=== PATIENT | male | born 2000 | race Caucasian/White ===

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

== ENCOUNTER 2021-07-08 21:35 | Emergency (ER) | payer OTHER ==
[2021-07-08] MEDS ORDERED: SODIUM CHLORIDE 0.9% 1,000 ML IV ONE (22:03)
[2021-07-08] MEDS ORDERED: ONDANSETRON 4 MG/2 ML VIAL IVP STA (22:03)
[2021-07-08] MEDS ORDERED: MORPHINE SULFATE 4 MG/ML SYRINGE IV STA (22:03)
--- NOTE | 2021-07-08 22:08 | ED ---
Abdominal Pain HPI - General Chief Complaint: Abdominal Pain Stated Complaint: Abd.Pain Time Seen by Provider: 07/08/21 21:49 Source: patient, family Mode of arrival: wheelchair Limitations: no limitations - History of Present Illness Initial Comments: This patient has a 20-year-old man who presents to be evaluated for right lower quadrant abdominal pain that is been going on approximately 32 hours, getting worse. The patient also has had some nausea and vomiting. He did have an episode of diarrhea. He has not seen blood or dark emesis or bowel movements. No change in urination. The patient had a previous episode of abdominal pain similar to this and had been admitted here in the hospital. Review the records shows that there was concerned about possibility of Crohn's colitis. The patient did not have follow-up with gastroenterology at that time. MD Complaint: abdominal pain Onset/Timin -: hour(s) Location: RLQ Radiation: none Severity: moderate Quality: aching Consistency: constant Improves With: nothing Worsens With: movement Associated Symptoms: nausea, vomiting - Related Data Previous Rx's Medication Instructions Recorded Amoxicillin/Potassium Clav 1 tab PO Q12HR 1 Days #14 tab 07/09/21 [Augmentin 875-125 Tablet] Ondansetron Odt [Zofran ODT] 4 mg PO Q8HR PRN #10 tab 07/09/21 predniSONE 60 mg PO DAILY #30 tab 07/09/21 Allergies Allergy/AdvReac Type Severity Reaction Status Date / Time haloperidol [From Haldol] Allergy Severe Anaphylaxis Verified 07/08/21 22:41 Review of Systems ROS Statement: Those systems with pertinent positive or pertinent negative responses have been documented in the HPI. ROS Other: All systems not noted in ROS Statement are negative. Constitutional: Denies: fever, chills Respiratory: Denies: cough, dyspnea Cardiovascular: Denies: chest pain, palpitations Gastrointestinal: Reports: abdominal pain, nausea, vomiting. Denies: diarrhea, constipation, melena, hematochezia Genitourinary: Denies: dysuria, frequency, hematuria, testicular pain, testicular mass Musculoskeletal: Denies: back pain Skin: Denies: rash Neurological: Denies: headache, weakness, numbness Past Medical History Past Medical History: Asthma, GERD/Reflux Additional Past Medical History / Comment(s): Headaches SINCE A HEAD INJURY IN 2017, FEBRILE SEIZURE A INFANT, PAST HISTORY OF IRREGULAR HEARTBEAT- History of Any Multi-Drug Resistant Organisms: None Reported Past Surgical History: No Surgical Hx Reported Additional Past Surgical History / Comment(s): DENTAL WORK WITH ANESTHESIA Past Anesthesia/Blood Transfusion Reactions: No Reported Reaction Past Psychological History: ADD/ADHD, Depression Smoking Status: Never smoker Past Alcohol Use History: None Reported Past Drug Use History: Marijuana - Past Family History Mother Family Medical History: No Reported History General Exam Limitations: no limitations General appearance: alert, in no apparent distress Head exam: Present: atraumatic, normocephalic Eye exam: Present: normal appearance. Absent: scleral icterus, conjunctival injection Respiratory exam: Present: normal lung sounds bilaterally. Absent: respiratory distress, wheezes, rales, rhonchi, stridor Cardiovascular Exam: Present: regular rate, normal rhythm, normal heart sounds. Absent: systolic murmur, diastolic murmur, rubs, gallop GI/Abdominal exam: Present: soft. Absent: distended, tenderness, guarding, rebound, rigid, mass Extremities exam: Present: normal inspection, normal capillary refill. Absent: pedal edema, calf tenderness Back exam: Present: normal inspection. Absent: CVA tenderness (R), CVA tenderness (L) Neurological exam: Present: alert Skin exam: Present: warm, dry, intact, normal color. Absent: rash Course Vital Signs 07/08/21 07/08/21 07/08/21 21:39 21:54 23:00 Temperature 97.6 F 98.3 F 98.4 F Pulse Rate 65 66 58 L Respiratory 18 17 17 Rate Blood Pressure 126/83 136/81 151/98 O2 Sat by Pulse 98 97 97 Oximetry Medical Decision Making - Medical Decision Making States that when he was feeling better he did not follow-up with the diesel locomotive firer/fireman. I discussed having patient admitted to see gastroenterology here and he states she would rather be seen as outpatient. We discussed in detail the appropriate further care and follow-up as well as return parameters. - Lab Data Result diagrams: 07/08/21 22:04 07/08/21 22:04 Lab Results 07/08/21 07/08/21 07/08/21 Range/Units 22:04 22:04 23:10 WBC 7.5 (4.0-11.0) k/uL RBC 4.89 (4.30-5.90) m/uL Hgb 15.2 (13.0-17.5) gm/dL Hct 45.2 (39.0-53.0) % MCV 92.4 (80.0-100.0) fL MCH 31.1 (25.0-35.0) pg MCHC 33.6 (31.0-37.0) g/dL RDW 12.6 (11.5-15.5) % Plt Count 248 (150-450) k/uL MPV 8.2 Neutrophils % 71 % Lymphocytes % 21 % Monocytes % 6 % Eosinophils % 1 % Basophils % 0 % Neutrophils # 5.3 (1.3-7.7) k/uL Lymphocytes # 1.6 (1.0-4.8) k/uL Monocytes # 0.5 (0-1.0) k/uL Eosinophils # 0.1 (0-0.7) k/uL Basophils # 0.0 (0-0.2) k/uL Sodium 138 (137-145) mmol/L Potassium 3.9 (3.5-5.1) mmol/L Chloride 105 (98-107) mmol/L Carbon Dioxide 24 (22-30) mmol/L Anion Gap 9 mmol/L BUN 18 (9-20) mg/dL Creatinine 0.71 (0.66-1.25) mg/dL Est GFR (CKD-EPI)AfAm >90 (>60 ml/min/1.73 sqM) Est GFR (CKD-EPI)NonAf >90 (>60 ml/min/1.73 sqM) Glucose 82 (74-99) mg/dL Calcium 8.5 (8.4-10.2) mg/dL Total Bilirubin 0.9 (0.2-1.3) mg/dL AST 21 (17-59) U/L ALT 11 (4-49) U/L Alkaline Phosphatase 75 (38-126) U/L C-Reactive Protein <0.5 (<1.0) mg/dL Total Protein 7.1 (6.3-8.2) g/dL Albumin 4.0 (3.5-5.0) g/dL Amylase 47 (30-110) U/L Lipase 19 L (23-300) U/L Urine Color Yellow Urine Appearance Clear (Clear) Urine pH 6.0 (5.0-8.0) Ur Specific [place] 1.029 (1.001-1.035) Urine Protein Trace H (Negative) Urine Glucose (UA) Negative (Negative) Urine Ketones 1+ H (Negative) Urine Blood Negative (Negative) Urine Nitrite Negative (Negative) Urine Bilirubin Negative (Negative) Urine Urobilinogen <2.0 (<2.0) mg/dL Ur Leukocyte Esterase Negative (Negative) Disposition Clinical Impression: Abdominal pain Narrative: Suspected Crohn's disease Disposition: HOME SELF-CARE Condition: Fair Instructions (If sedation given, give patient instructions): Abdominal Pain (ED) Prescriptions: Amoxicillin/Potassium Clav [Augmentin 875-125 Tablet] 1 tab PO Q12HR 1 Days #14 tab predniSONE 60 mg PO DAILY #30 tab Ondansetron Odt [Zofran ODT] 4 mg PO Q8HR PRN #10 tab PRN Reason: Nausea Is patient prescribed a controlled substance at d/c from ED?: No Referrals: None,Stated [Primary Care Provider] - 1-2 days Chelsy Almanzar MD [STAFF PHYSICIAN] - 1-2 days
[2021-07-08 22:33] LABS: Basophils % (A) 0 %; Eosinophils # (A) 0.1 k/uL (0-0.7); Eosinophils % (A) 1 %; HCT 45.2 % (39.0-53.0); HGB 15.2 gm/dL (13.0-17.5); Lymphocytes # (A) 1.6 k/uL (1.0-4.8); Lymphocytes % (A) 21 %; MCH 31.1 pg (25.0-35.0); MCHC 33.6 g/dL (31.0-37.0); MCV 92.4 fL (80.0-100.0); Mean Platelet Volume 8.2; Monocytes # (A) 0.5 k/uL (0-1.0); Monocytes % (A) 6 %; Neutrophils # (A) 5.3 k/uL (1.3-7.7); Neutrophils % (A) 71 %; Platelet Count 248 k/uL (150-450); RBC 4.89 m/uL (4.30-5.90); RDW 12.6 % (11.5-15.5); WBC 7.5 k/uL (4.0-11.0)
[2021-07-08 22:45] LABS: ALT 11 U/L (4-49); AST 21 U/L (17-59); African American GFR (CKD) >90 (>60 ml/min/1.73 sqM); Alkaline Phosphatase 75 U/L (38-126); Amylase 47 U/L (30-110); Anion Gap 9 mmol/L; Blood Urea Nitrogen 18 mg/dL (9-20); Calcium 8.5 mg/dL (8.4-10.2); Carbon Dioxide 24 mmol/L (22-30); Chloride 105 mmol/L (98-107); Glucose 82 mg/dL (74-99); Lipase 19 U/L (23-300); Non-African American GFR(CKD) >90 (>60 ml/min/1.73 sqM); Potassium 3.9 mmol/L (3.5-5.1); Sodium 138 mmol/L (137-145); Total Bilirubin 0.9 mg/dL (0.2-1.3); Total Protein 7.1 g/dL (6.3-8.2)
[2021-07-08 22:53] LABS: C Reactive Protein <0.5 mg/dL (<1.0)
[2021-07-08 23:19] VITALS: TEMP 98.4
--- NOTE | 2021-07-08 23:39 | CT ---
EXAMINATION TYPE: CT abdomen pelvis wo con DATE OF EXAM: 07/08/2021 COMPARISON: 05/08/2019 HISTORY: Right flank pain CT DLP: 515.3 mGycm Automated exposure control for dose reduction was used. Images obtained from the diaphragm to the floor the pelvis without contrast. The lung bases are clear. There is no pleural effusion. Heart size is normal. There is no pericardial effusion. Liver spleen and stomach pancreas and gallbladder appear intact. Bowel loops are nondilated. There is no adrenal mass. Kidneys have normal size and contour. There is no hydronephrosis. Ureters a re not dilated. There is no retroperitoneal adenopathy. Bladder distends smoothly. There is no gallery intern al hernia. There is small amount of low-density fluid in the pelvis. This measures up to 2.5 cm in th ickness. Appendix is posterior and appears normal. There is no ascites or free air. There is distended small bowel loops with fluid in the mid abdomen measuring up to 2.7 cm in diameter. There is some small bow el mesenteric edema in the lower abdomen. There is mild wall thickening of the distended bowel. The t erminal ileum has normal diameter. The lumbar vertebrae have normal alignment. There is no compression fracture. The bony pelvis is inta ct. The hip joints are intact. There is right-sided L5 spondylolysis. There is no spondylolisthesis. IMPRESSION: Mildly dilated mid ileum with fecal material and mild small bowel mesenteric edema. This could relate to inflammatory bowel disease and partial bowel obstruction. This appears similar to old exam. Small amount of low-density free fluid in the pelvis also not significantly different.
[2021-07-08 23:43] LABS: Appearance,Urine Clear (Clear); Bilirubin,Urine Negative (Negative); Blood,Urine Negative (Negative); Color,Urine Yellow; Glucose,Urine (UA) Negative (Negative); Ketones,Urine 1+ (Negative); Leukocyte Esterase,Urine Negative (Negative); Nitrite,Urine Negative (Negative); Protein,Urine Trace (Negative); Specific Gravity,Urine 1.029 (1.001-1.035); Urobilinogen,Urine <2.0 mg/dL (<2.0)
[2021-07-09] MEDS ORDERED: predniSONE 20 MG TAB PO STA (00:12)
[2021-07-09] MEDS ORDERED: AMOXIC-POT CLAV 875-125MG 1 EACH TAB PO STA (00:12)
[2021-07-09] MEDS ORDERED: MORPHINE SULFATE 4 MG/ML SYRINGE IV STA (00:36)
[2021-07-09 00:45] VITALS: BP 142/84; PULSE 84; RESP 15
== END 2021-07-09 00:40 | disposition home or self-care (01) ==
LOC: EC 21:35
DX: R10.31 Right lower quadrant pain (principal); J45.909 Unspecified asthma, uncomplicated; K21.9 Gastro-esophageal reflux disease without esophagitis; F12.90 Cannabis use, unspecified, uncomplicated; Z79.52 Long term (current) use of systemic steroids; Z79.899 Other long term (current) drug therapy
CPT/HCPCS: 36415; 80053; 82150; 83690; 85025; 86140; 81003; 74176; 99284; 96374; 96375; 96376; 96361 ×2; J2270; J2405

== ENCOUNTER 2021-08-19 17:55 | Emergency (ER) | payer OTHER ==
[2021-08-19 18:24] VITALS: BP 121/68; PULSE 77; RESP 18; TEMP 97
[2021-08-19] MEDS ORDERED: DEXAMETHASONE SOD PHOSPHATE 10 MG/ML 1 ML VIAL IM STA (19:03)
[2021-08-19] MEDS ORDERED: PENICILLIN V POTASSIUM 250 MG TAB PO STA (20:17)
[2021-08-19] MEDS ORDERED: KETOROLAC 15 MG/ML 1 ML VIAL IM STA (20:25)
--- NOTE | 2021-08-19 20:28 | ED ---
ENT HPI - General Chief complaint: Dental/Oral Stated complaint: tooth abcess Time Seen by Provider: 08/19/21 18:49 Source: patient Mode of arrival: ambulatory Limitations: no limitations - History of Present Illness Initial comments: Patient is a 20-year-old male presenting with chief complaint of dental pain. The left lower jaw has been increasingly painful over the last week. Patient has a known dental issues and has an appointment with the dentist in 2 days, but stated the pain became so intense that he could not wait for evaluation. He occasionally takes Motrin and Tylenol which is somewhat helpful for pain. Patient states there is pain with swallowing and opening and closing of the jaw. Denies muffled voice, shortness of breath, fever, chills, drooling, neck pain, headache, vision changes, ear pain, dysphasia. - Related Data Previous Rx's Medication Instructions Recorded Amoxicillin/Potassium Clav 1 tab PO Q12HR 1 Days #14 tab 07/09/21 [Augmentin 875-125 Tablet] Ondansetron Odt [Zofran ODT] 4 mg PO Q8HR PRN #10 tab 07/09/21 predniSONE 60 mg PO DAILY #30 tab 07/09/21 Penicillin V Potassium [Pen Vee K] 500 mg PO QID 7 Days #28 tablet 08/19/21 Allergies Allergy/AdvReac Type Severity Reaction Status Date / Time haloperidol [From Haldol] Allergy Severe Anaphylaxis Verified 08/19/21 18:21 Review of Systems ROS Statement: Those systems with pertinent positive or pertinent negative responses have been documented in the HPI. ROS Other: All systems not noted in ROS Statement are negative. Past Medical History Past Medical History: Asthma, GERD/Reflux Additional Past Medical History / Comment(s): Headaches SINCE A HEAD INJURY IN 2017, FEBRILE SEIZURE A , PAST HISTORY OF IRREGULAR HEARTBEAT- History of Any Multi-Drug Resistant Organisms: None Reported Past Surgical History: No Surgical Hx Reported Additional Past Surgical History / Comment(s): DENTAL WORK WITH ANESTHESIA Past Anesthesia/Blood Transfusion Reactions: No Reported Reaction Past Psychological History: ADD/ADHD, Depression Smoking Status: Never smoker Past Alcohol Use History: None Reported Past Drug Use History: Marijuana - Past Family History Mother Family Medical History: No Reported History General Exam Limitations: no limitations General appearance: alert, in no apparent distress Head exam: Present: atraumatic, normocephalic, normal inspection Eye exam: Present: normal appearance, PERRL, EOMI. Absent: scleral icterus, conjunctival injection, periorbital swelling Expanded Mouth exam: Present: tongue normal. Absent: drooling, trismus, muffled voice Teeth exam: Present: dental caries, fractured tooth # (teeth 19 and 20), dental tenderness # (19 and 20), gingival enlargement, other (Tenderness to palpation of the left mandible) Throat exam: tonsillomegaly (L side, no midline shift) Neck exam: Present: normal inspection. Absent: tenderness, meningismus, lymphadenopathy Respiratory exam: Present: normal lung sounds bilaterally. Absent: respiratory distress, wheezes, rales, rhonchi, stridor Cardiovascular Exam: Present: regular rate, normal rhythm, normal heart sounds. Absent: systolic murmur, diastolic murmur, rubs, gallop, clicks Neurological exam: Present: alert, oriented X3, CN II-XII intact Psychiatric exam: Present: normal affect, normal mood Skin exam: Present: warm, dry, intact, normal color. Absent: rash Course Vital Signs 08/19/21 18:22 Temperature 97 F L Pulse Rate 77 Respiratory 18 Rate Blood Pressure 121/68 O2 Sat by Pulse 95 Oximetry Medical Decision Making - Medical Decision Making Patient is a 20-year-old male presenting with a chief complaint of dental pain. Pain has been worsening over the last week and is located on the left lower side. Patient has known dental caries and injury to tooth 19 and 20, he has appointment with his dentist on Tuesday. On exam there is tenderness to palpation of the left side of the mandible. There is no brawny induration or lymphadenopathy. Patient has pain with opening and closing of the jaw but is able to do so. No muffled voice drooling or trismus. There is some swelling of the left tonsil, no midline shift. He denies dysphasia or shortness of breath. Strep screen was negative. Given 30 mg Toradol IM and his first dose of penicillin VK 500 mg. Remainder of his prescription for penicillin VK 500 mg 4 times a day for 7 days was sent to his pharmacy on file. Take Motrin and Tylenol as needed for pain control. Abstain from motrin for 24 hours after toradol injection. Follow-up with dentist at scheduled appointment. Follow-up with PCP in one to 2 days. Return to ER with worsening symptoms or new onset alarming symptoms, including but not limited to dysphasia, shortness of breath, fever, chills, trismus, headache, vision changes. answered All questions. Patient conveyed verbal understanding and agreed to the plan. My attending was Dr. Sewell. - Lab Data Lab Results 08/19/21 Range/Units 19:25 Group A Strep Rapid Negative (Negative) Disposition Clinical Impression: Dental abscess Disposition: HOME SELF-CARE Condition: Good Instructions (If sedation given, give patient instructions): Dental Abscess (ED), Toothache (ED) Additional Instructions: Follow Up with PCP and dentist in one to 2 days. Abstain from Motrin for 24 hours after receiving Toradol injection in the ER. Take Motrin and Tylenol for pain relief as needed. Report back to ER with worsening symptoms or new onset alarming symptoms, including but not limited to difficulty swallowing, voice changes, fever, chills, difficulty opening and closing jaw. Prescriptions: Penicillin V Potassium [Pen Vee K] 500 mg PO QID 7 Days #28 tablet Is patient prescribed a controlled substance at d/c from ED?: No Referrals: None,Stated [Primary Care Provider] - 1-2 days Time of Disposition: 20:28
== END 2021-08-19 20:42 | disposition home or self-care (01) ==
LOC: EC 17:55
DX: K04.7 Periapical abscess without sinus (principal); J45.909 Unspecified asthma, uncomplicated; K21.9 Gastro-esophageal reflux disease without esophagitis; F90.9 Attention-deficit hyperactivity disorder, unspecified type; F32.A Depression, unspecified; F12.90 Cannabis use, unspecified, uncomplicated
CPT/HCPCS: 99283; 96372 ×2; 87081; 87430; J1100; J1885

== ENCOUNTER 2023-09-21 15:04 | Emergency (ER) | payer OTHER ==
--- NOTE | 2023-09-21 15:44 | ED ---
General Adult HPI - General Chief complaint: Weakness Stated complaint: Slurred speech/dizziness Time Seen by Provider: 09/21/23 15:21 Source: patient Mode of arrival: ambulatory Limitations: no limitations - History of Present Illness Initial comments: Dictation was produced using [employer] dictation software. please excuse any grammatical, word or spelling errors. Chief Complaint: 22-year-old male with weakness, sore throat body aches fevers History of Present Illness: Patient 22-year-old male for the last 7 days he has been having weakness, total body aches, fevers and lethargy. He presents with his girlfriend. Patient denies any obvious sick contacts. States of all of his complaints the worst of it is weakness in the body aches. Patient also reports left-sided upper abdominal pain. Does complain of some poor appetite nausea but no vomiting. The ROS documented in this emergency department record has been reviewed and confirmed by me. Those systems with pertinent positive or negative responses have been documented in the HPI. All other systems are other negative and/or noncontributory. - Related Data Previous Rx's Medication Instructions Recorded Amoxicillin/Potassium Clav 1 tab PO Q12HR 1 Days #14 tab 07/09/21 [Augmentin 875-125 Tablet] Ondansetron Odt [Zofran ODT] 4 mg PO Q8HR PRN #10 tab 07/09/21 predniSONE 60 mg PO DAILY #30 tab 07/09/21 Penicillin V Potassium [Pen Vee K] 500 mg PO QID 7 Days #28 tablet 08/19/21 Allergies Allergy/AdvReac Type Severity Reaction Status Date / Time haloperidol [From Haldol] Allergy Severe Anaphylaxis Verified 09/21/23 15:15 Review of Systems ROS Statement: Those systems with pertinent positive or pertinent negative responses have been documented in the HPI. ROS Other: All systems not noted in ROS Statement are negative. Past Medical History Past Medical History: Asthma, GERD/Reflux Additional Past Medical History / Comment(s): Headaches SINCE A HEAD INJURY IN 2017, FEBRILE SEIZURE A , PAST HISTORY OF IRREGULAR HEARTBEAT- History of Any Multi-Drug Resistant Organisms: None Reported Past Surgical History: No Surgical Hx Reported Additional Past Surgical History / Comment(s): DENTAL WORK WITH ANESTHESIA Past Anesthesia/Blood Transfusion Reactions: No Reported Reaction Past Psychological History: ADD/ADHD, Depression Smoking Status: Never smoker, Vaper Past Alcohol Use History: None Reported, Rare Past Drug Use History: Marijuana - Past Family History Mother Family Medical History: No Reported History General Exam - General Exam Comments Initial Comments: PHYSICAL EXAM: General Impression: Alert and oriented x3, not in acute distress HEENT: Normocephalic atraumatic, extra-ocular movements intact, pupils equal and reactive to light bilaterally, mucous membranes moist, inflamed tonsils with exudates Cardiovascular: Heart regular rate and rhythm Chest: Able to complete full sentences, no retractions, no tachypnea Abdomen: abdomen soft, non-tender, non-distended, no organomegaly Musculoskeletal: Pulses present and equal in all extremities, no peripheral edema Motor: no focal deficits noted Neurological: CN II-XII grossly intact, no focal motor or sensory deficits noted Skin: Intact with no visualized rashes Psych: Normal affect and mood Limitations: no limitations Course Vital Signs 09/21/23 09/21/23 15:11 15:27 Temperature 99.0 F Pulse Rate 74 Respiratory 18 18 Rate Blood Pressure 126/81 O2 Sat by Pulse 98 Oximetry Medical Decision Making - Medical Decision Making Was pt. sent in by a medical professional or institution (, PA, SUPERVISOR PHOSPHORIC ACID, urgent care, hospital, or longterm...) When possible be specific @ -No Did you speak to anyone other than the patient for history (EMS, parent, family, police, friend...)? What history was obtained from this source @ -No Did you review nursing and triage notes (agree or disagree)? Why? @ -I reviewed and agree with nursing and triage notes Were old charts reviewed (outside hosp., previous admission, EMS record, old EKG, old radiological studies, urgent care reports/EKG's, longterm records)? Report findings @ -No old charts were reviewed Differential Diagnosis (chest pain, altered mental status, abdominal pain women, abdominal pain men, vaginal bleeding, musculoskeletal, weakness, fever, dyspnea, syncope, headache, dizziness, GI bleed, back pain, seizure, CVA, palpatations, mental health)? @ -Differential Fever: Pneumonia, viral URI, endocarditis, myocarditis, pericarditis, otitis, sinusitis, peritonsillar Abscess, retropharyngeal Abscess, epiglottitis, snow tonitis, appendicitis, Flori cystitis, diverticulitis, hepatitis, colitis, UTI, PID, TOA, pyelonephritis, prostatitis, epididymitis, meningitis, encephalitis, pulmonary embolism, CVA, thyroid storm, pancreatitis, adrenal crisis, cavernous sinus thrombosis, this is not meant to be an all-inclusive list. EKG interpreted by me (3pts min.). @ -None done X-rays interpreted by me (1pt min.). @ -None done CT interpreted by me (1pt min.). @ -None done U/S interpreted by me (1pt. min.). @ -None done What testing was considered but not performed or refused? (CT, X-rays, U/S, labs)? Why? @ -None What meds were considered but not given or refused? Why? @ -None Did you discuss the management of the patient with other professionals (professionals i.e. , PA, SUPERVISOR PHOSPHORIC ACID, lab, RT, psych nurse, social worker health services, bandmill operator, teacher, front desk officer, casework specialist)? Give summary @ -No Was smoking cessation discussed for >3mins.? @ -No Was critical care preformed (if so, how long)? @ -No Were there social determinants of health that impacted care today? How? (Homelessness, low income, unemployed, alcoholism, drug addiction, transportation, low edu. Level, literacy, decrease access to med. care, shelter, rehab)? @ -No Was there de-escalation of care discussed even if they declined (Discuss DNR or withdrawal of care, Hospice)? DNR status @ -No What co-morbidities impacted this encounter? (DM, HTN, Smoking, COPD, CAD, Cancer, CVA, ARF, Chemo, Hep., AIDS, mental health diagnosis, sleep apnea, morbid obesity)? @ -None Was patient admitted / discharged? Hospital course, mention meds given and route, prescriptions, significant lab abnormalities, going to OR and other pertinent info. @ -22-year-old male presents to the emergency department with pharyngitis with associated constitutional symptoms. Vital signs upon arrival are within acceptable limits. Laboratory evaluation obtained. Labs are negative. Patient negative for mononucleosis. Viral testing is negative. Strep test is negative. Patient observed emergency department with stable medical edition is given Toradol and reports improvement. Patient discharged likely symptoms secondary to viral URI e. Undiagnosed new problem with uncertain prognosis? @ -No Drug Therapy requiring intensive monitoring for toxicity (Heparin, Nitro, I nsulin, Cardizem)? @ -No Were any procedures done? @ -No Diagnosis/symptom? Acute, or Chronic, or Acute on Chronic? Uncomplicated (without systemic symptoms) or Complicated (systemic symptoms)? @ -Viral URI Side effects of treatment? @ -No Exacerbation, Progression, or Severe Exacerbation? @ -No Poses a threat to life or bodily function? How? (Chest pain, USA, [place], pneumonia, PE, COPD, DKA, ARF, appy, cholecystitis, CVA, Diverticulitis, Homicidal, Suicidal, threat to staff... and all critical care pts) @ -No - Lab Data Result diagrams: 09/21/23 16:00 09/21/23 16:00 Lab Results 09/21/23 09/21/23 09/21/23 Range/Units 15:30 16:00 16:00 WBC 7.9 (3.8-10.6) k/uL RBC 4.65 (4.30-5.90) m/uL Hgb 14.3 (13.0-17.5) gm/dL Hct 43.5 (39.0-53.0) % MCV 93.5 (80.0-100.0) fL MCH 30.7 (25.0-35.0) pg MCHC 32.8 (31.0-37.0) g/dL RDW 12.4 (11.5-15.5) % Plt Count 235 (150-450) k/uL MPV 8.5 Neutrophils % 79 % Lymphocytes % 14 % Monocytes % 5 % Eosinophils % 1 % Basophils % 0 % Neutrophils # 6.2 (1.3-7.7) k/uL Lymphocytes # 1.1 (1.0-4.8) k/uL Monocytes # 0.4 (0-1.0) k/uL Eosinophils # 0.0 (0-0.7) k/uL Basophils # 0.0 (0-0.2) k/uL Sodium (137-145) mmol/L Potassium (3.5-5.1) mmol/L Chloride (98-107) mmol/L Carbon Dioxide (22-30) mmol/L Anion Gap mmol/L BUN (9-20) mg/dL Creatinine (0.66-1.25) mg/dL Est GFR (CKD-EPI)AfAm (>60 ml/min/1.73 sqM) Est GFR (CKD-EPI)NonAf (>60 ml/min/1.73 sqM) Glucose (74-99) mg/dL Calcium (8.4-10.2) mg/dL Heterophile Antibody Negative (Negative) Influenza Type A (PCR) Not Detected (Not Detectd) Influenza Type B (PCR) Not Detected (Not Detectd) RSV (PCR) Not Detected (Not Detectd) SARS-CoV-2 (PCR) Not Detected (Not Detectd) Group A Strep (PCR) (Not Detectd) 09/21/23 09/21/23 Range/Units 16:00 16:00 WBC (3.8-10.6) k/uL RBC (4.30-5.90) m/uL Hgb (13.0-17.5) gm/dL Hct (39.0-53.0) % MCV (80.0-100.0) fL MCH (25.0-35.0) pg MCHC (31.0-37.0) g/dL RDW (11.5-15.5) % Plt Count (150-450) k/uL MPV Neutrophils % % Lymphocytes % % Monocytes % % Eosinophils % % Basophils % % Neutrophils # (1.3-7.7) k/uL Lymphocytes # (1.0-4.8) k/uL Monocytes # (0-1.0) k/uL Eosinophils # (0-0.7) k/uL Basophils # (0-0.2) k/uL Sodium 140 (137-145) mmol/L Potassium 4.7 (3.5-5.1) mmol/L Chloride 106 (98-107) mmol/L Carbon Dioxide 28 (22-30) mmol/L Anion Gap 6 mmol/L BUN 13 (9-20) mg/dL Creatinine 0.79 (0.66-1.25) mg/dL Est GFR (CKD-EPI)AfAm >90 (>60 ml/min/1.73 sqM) Est GFR (CKD-EPI)NonAf >90 (>60 ml/min/1.73 sqM) Glucose 90 (74-99) mg/dL Calcium 9.4 (8.4-10.2) mg/dL Heterophile Antibody (Negative) Influenza Type A (PCR) (Not Detectd) Influenza Type B (PCR) (Not Detectd) RSV (PCR) (Not Detectd) SARS-CoV-2 (PCR) (Not Detectd) Group A Strep (PCR) NOT DETECTED (Not Detectd) Disposition Clinical Impression: Viral URI Disposition: HOME SELF-CARE Condition: Good Instructions (If sedation given, give patient instructions): Pharyngitis (ED) Is patient prescribed a controlled substance at d/c from ED?: No Referrals: None,Stated [Primary Care Provider] - 1-2 days Time of Disposition: 17:30
[2023-09-21 16:12] VITALS: PULSE 74; RESP 18
[2023-09-21 16:14] LABS: Basophils % (A) 0 %; Eosinophils % (A) 1 %; HCT 43.5 % (39.0-53.0); HGB 14.3 gm/dL (13.0-17.5); Lymphocytes # (A) 1.1 k/uL (1.0-4.8); Lymphocytes % (A) 14 %; MCH 30.7 pg (25.0-35.0); MCHC 32.8 g/dL (31.0-37.0); MCV 93.5 fL (80.0-100.0); Mean Platelet Volume 8.5; Monocytes # (A) 0.4 k/uL (0-1.0); Monocytes % (A) 5 %; Neutrophils # (A) 6.2 k/uL (1.3-7.7); Neutrophils % (A) 79 %; Platelet Count 235 k/uL (150-450); RBC 4.65 m/uL (4.30-5.90); RDW 12.4 % (11.5-15.5); WBC 7.9 k/uL (3.8-10.6)
[2023-09-21] MEDS: KETOROLAC 15 MG/ML 1 ML VIAL IVP STA (16:19)
[2023-09-21 16:26] LABS: African American GFR (CKD) >90 (>60 ml/min/1.73 sqM); Anion Gap 6 mmol/L; Blood Urea Nitrogen 13 mg/dL (9-20); Calcium 9.4 mg/dL (8.4-10.2); Carbon Dioxide 28 mmol/L (22-30); Chloride 106 mmol/L (98-107); Glucose 90 mg/dL (74-99); Non-African American GFR(CKD) >90 (>60 ml/min/1.73 sqM); Potassium 4.7 mmol/L (3.5-5.1); Sodium 140 mmol/L (137-145)
[2023-09-21 18:06] VITALS: BP 120/89; TEMP 98.7
== END 2023-09-21 17:35 | disposition home or self-care (01) ==
LOC: EC 15:04
DX: J06.9 Acute upper respiratory infection, unspecified (principal); Z88.8 Allergy status to other drugs, medicaments and biological substances
CPT/HCPCS: 36415; 87651; 80048; 85025; 86308; 87636; 99284; 96374; J1885

== ENCOUNTER 2023-10-06 12:30 | Emergency (ER) | payer OTHER ==
--- NOTE | 2023-10-06 12:54 | ED ---
Abdominal Pain HPI - General Chief Complaint: Abdominal Pain Stated Complaint: Vomiting Time Seen by Provider: 10/06/23 12:39 Source: patient, RN notes reviewed, old records reviewed Mode of arrival: ambulatory Limitations: no limitations - History of Present Illness Initial Comments: This is a 22-year-old male to the ER for evaluation of abdominal pain today. This patient presents with his son for evaluation of nausea vomiting diarrhea which has been an issue for a few days with him he started to feel weak lightheaded fatigued lethargic with generalized pain. He has no fevers. No travel history no sick contacts. No prior history of similar illness MD Complaint: abdominal pain, other (Nausea vomiting diarrhea) -: days(s) Location: diffuse, epigastric, suprapubic Radiation: epigastric, suprapubic Migration to: no migration, epigastric, suprapubic Severity: moderate Severity scale (1-10): 5 Quality: fullness Consistency: intermittent Improves With: nothing Associated Symptoms: denies other symptoms, nausea, vomiting Treatments Prior to Arrival: other (0) - Related Data Home Medications Medication Instructions Recorded Confirmed No Known Home Medications 10/06/23 10/06/23 Allergies Allergy/AdvReac Type Severity Reaction Status Date / Time haloperidol [From Haldol] Allergy Severe Anaphylaxis Verified 10/06/23 13:41 Review of Systems ROS Statement: Those systems with pertinent positive or pertinent negative responses have been documented in the HPI. ROS Other: All systems not noted in ROS Statement are negative. Past Medical History Past Medical History: Asthma, GERD/Reflux Additional Past Medical History / Comment(s): Headaches SINCE A HEAD INJURY IN 2017, FEBRILE SEIZURE A INFANT, PAST HISTORY OF IRREGULAR HEARTBEAT- History of Any Multi-Drug Resistant Organisms: None Reported Past Surgical History: No Surgical Hx Reported Additional Past Surgical History / Comment(s): DENTAL WORK WITH ANESTHESIA Past Anesthesia/Blood Transfusion Reactions: No Reported Reaction Past Psychological History: ADD/ADHD, Depression Smoking Status: Never smoker Past Alcohol Use History: None Reported - Past Family History Mother Family Medical History: No Reported History General Exam Limitations: no limitations General appearance: alert, in no apparent distress Head exam: Present: atraumatic, normocephalic, normal inspection Eye exam: Present: normal appearance, PERRL, EOMI. Absent: scleral icterus, conjunctival injection, periorbital swelling ENT exam: Present: normal exam, mucous membranes moist Neck exam: Present: normal inspection. Absent: tenderness, meningismus, lymphadenopathy Respiratory exam: Present: normal lung sounds bilaterally. Absent: respiratory distress, wheezes, rales, rhonchi, stridor Cardiovascular Exam: Present: regular rate, normal rhythm, normal heart sounds. Absent: systolic murmur, diastolic murmur, rubs, gallop, clicks GI/Abdominal exam: Present: soft, distended, tenderness, normal bowel sounds. Absent: guarding, rebound, rigid Extremities exam: Present: normal inspection, full ROM, normal capillary refill. Absent: tenderness, pedal edema, joint swelling, calf tenderness Back exam: Present: normal inspection Neurological exam: Present: alert, oriented X3, CN II-XII intact Psychiatric exam: Present: normal affect, normal mood Skin exam: Present: warm, dry, intact, normal color. Absent: rash Course Vital Signs 10/06/23 10/06/23 10/06/23 12:33 16:25 18:13 Temperature 98.0 F Pulse Rate 75 52 L 64 Respiratory 16 16 16 Rate Blood Pressure 122/76 114/73 135/90 O2 Sat by Pulse 96 99 100 Oximetry - Reevaluation(s) Reevaluation #1: Records reviewed Reevaluation #2: Patient symptoms improved Reevaluation #3: Patient informed of results and questions answered Reevaluation #4: Was pt. sent in by a medical professional or institution (Dr. PA, TEXTILE TECHNICAL OFFICER, urgent care, hospital, or half-way...) When possible be specific @ -no Did you speak to anyone other than the patient for history (EMS, parent, family, police, friend...)? What history was obtained from this source @ -no Did you review nursing and triage notes (agree or disagree)? Why? @ -agree Are old charts reviewed (outside hosp., previous admission, EMS record, old EKG, old radiological studies, urgent care reports/EKG's, half-way records)? Report findings @ -yes Differential Diagnosis (chest pain, altered mental status, abdominal pain women, abdominal pain men, vaginal bleeding, weakness, fever, dyspnea, syncope, headache, dizziness, GI bleed, back pain, seizure, CVA, palpatations, mental health, musculoskeletal)? @ -prior EKG interpreted by me (3pts min.). @ -yes X-rays interpreted by me (1pt min.). @ -yes n with concerns for ileus CT interpreted by me (1pt min.). @ -yes negative for acute disease U/S interpreted by me (1pt. min.). @ -no What testing was considered but not performed or refused? (CT, X-rays, U/S, labs)? Why? @ -none What meds were considered but not given or refused? Why? @ -none Did you discuss the management of the patient with other professionals (professionals i.e. DrHong, PA, TEXTILE TECHNICAL OFFICER, lab, RT, psych nurse, psych social worker, rocket motor mechanic, teacher, unclaimed property officer, case aide)? Give summary @ -no Was smoking cessation discussed for >3mins.? @ -no Was critical care preformed (if so, how long)? @ -no Were there social determinants of health that impacted care today? How? (Homelessness, low income, unemployed, alcoholism, drug addiction, transportation, low edu. Level, literacy, decrease access to med. care, intermediate, rehab)? @ -none Was there de-escalation of care discussed even if they declined (Discuss DNR or withdrawal of care, Hospice)? DNR status @ -no What co-morbidities impacted this encounter? (DM, HTN, Smoking, COPD, CAD, Cancer, CVA, ARF, Chemo, Hep., AIDS, mental health diagnosis, sleep apnea, morbid obesity)? @ -none Was patient admitted / discharged? Hospital course, mention meds given and route, prescriptions, significant lab abnormalities, going to OR and other pertinent info. @ -22 male to ER for evaluation nausea vomiting diarrhea. Patient has signi ficant improved with hydration medication here in the ER imaging is negative patient can be discharged home Undiagnosed new problem with uncertain prognosis? @ -no Drug Therapy requiring intensive monitoring for toxicity (Heparin, Nitro, Insulin, Cardizem)? @ -no Were any procedures done? @ -no Diagnosis/symptom? @ -Abdominal pain nausea vomiting diarrhea Acute, or Chronic, or Acute on Chronic? @ -Acute Uncomplicated (without systemic symptoms) or Complicated (systemic symptoms)? @ -Complicated Side effects of treatment? @ -no Exacerbation, Progression, or Severe Exacerbation? @ -exacerbation Poses a threat to life or bodily function? How? (Chest pain, [place], [place], pneumonia, PE, COPD, DKA, ARF, appy, cholecystitis, CVA, Diverticulitis, Homicidal, Suicidal, threat to staff... and all critical care pts) @ -yes with significant sudden onset of abdominal pain Reevaluation #5: Differential Abdominal Pain Men: Appendicitis, cholecystitis, diverticulosis, ischemic bowel, pancreatitis, hepatitis, UTI, gastroenteritis, AAA, incarcerated hernia, bowel obstruction, constipation, inflammatory bowel, hepatitis, peptic ulcer disease, splenic infarction, perforated viscus, testicular torsion, this is not meant to be an all-inclusive list Medical Decision Making - Medical Decision Making 22 Male presented to the ER today for abdominal pain nausea vomiting with some persistent occasional diarrhea. Patient symptoms are improved here in the ER is no acute current complaints and can be discharged home - Lab Data Result diagrams: 10/06/23 12:56 10/06/23 12:56 Lab Results 10/06/23 10/06/23 10/06/23 Range/Units 12:56 12:56 12:56 WBC 6.6 (3.8-10.6) k/uL RBC 4.66 (4.30-5.90) m/uL Hgb 14.3 (13.0-17.5) gm/dL Hct 43.0 (39.0-53.0) % MCV 92.3 (80.0-100.0) fL MCH 30.7 (25.0-35.0) pg MCHC 33.3 (31.0-37.0) g/dL RDW 12.4 (11.5-15.5) % Plt Count 207 (150-450) k/uL MPV 8.8 Neutrophils % 66 % Lymphocytes % 24 % Monocytes % 6 % Eosinophils % 2 % Basophils % 0 % Neutrophils # 4.3 (1.3-7.7) k/uL Lymphocytes # 1.6 (1.0-4.8) k/uL Monocytes # 0.4 (0-1.0) k/uL Eosinophils # 0.1 (0-0.7) k/uL Basophils # 0.0 (0-0.2) k/uL Sodium 140 (137-145) mmol/L Potassium 3.9 (3.5-5.1) mmol/L Chloride 103 (98-107) mmol/L Carbon Dioxide 33 H (22-30) mmol/L Anion Gap 4 mmol/L BUN 9 (9-20) mg/dL Creatinine 0.82 (0.66-1.25) mg/dL Est GFR (CKD-EPI)AfAm >90 (>60 ml/min/1.73 sqM) Est GFR (CKD-EPI)NonAf >90 (>60 ml/min/1.73 sqM) Glucose 65 L (74-99) mg/dL Calcium 9.1 (8.4-10.2) mg/dL Total Bilirubin 0.5 (0.2-1.3) mg/dL AST 49 (17-59) U/L ALT 84 H (4-49) U/L Alkaline Phosphatase 61 (38-126) U/L Total Protein 7.1 (6.3-8.2) g/dL Albumin 4.2 (3.5-5.0) g/dL Amylase 52 (30-110) U/L Lipase 19 L (23-300) U/L Heterophile Antibody Negative (Negative) - Radiology Data Radiology results: report reviewed (X-ray KUB CT abdomen pelvis negative for acute disease), image reviewed Disposition Clinical Impression: Abdominal pain, Vomiting and diarrhea Disposition: HOME SELF-CARE Condition: Good Instructions (If sedation given, give patient instructions): Abdominal Pain (ED) Is patient prescribed a controlled substance at d/c from ED?: No Referrals: None,Stated [Primary Care Provider] - 1-2 days Time of Disposition: 17:30
[2023-10-06] MEDS: SODIUM CHLORIDE 0.9% 1,000 ML IV STA ×2 (12:58→13:50)
[2023-10-06 13:06] LABS: Basophils % (A) 0 %; Eosinophils # (A) 0.1 k/uL (0-0.7); Eosinophils % (A) 2 %; HGB 14.3 gm/dL (13.0-17.5); Lymphocytes # (A) 1.6 k/uL (1.0-4.8); Lymphocytes % (A) 24 %; MCH 30.7 pg (25.0-35.0); MCHC 33.3 g/dL (31.0-37.0); MCV 92.3 fL (80.0-100.0); Mean Platelet Volume 8.8; Monocytes # (A) 0.4 k/uL (0-1.0); Monocytes % (A) 6 %; Neutrophils # (A) 4.3 k/uL (1.3-7.7); Neutrophils % (A) 66 %; Platelet Count 207 k/uL (150-450); RBC 4.66 m/uL (4.30-5.90); RDW 12.4 % (11.5-15.5); WBC 6.6 k/uL (3.8-10.6)
[2023-10-06 13:07] VITALS: RESP 16; TEMP 98
[2023-10-06 13:19] LABS: ALT 84 U/L (4-49); AST 49 U/L (17-59); African American GFR (CKD) >90 (>60 ml/min/1.73 sqM); Albumin 4.2 g/dL (3.5-5.0); Alkaline Phosphatase 61 U/L (38-126); Amylase 52 U/L (30-110); Anion Gap 4 mmol/L; Blood Urea Nitrogen 9 mg/dL (9-20); Calcium 9.1 mg/dL (8.4-10.2); Carbon Dioxide 33 mmol/L (22-30); Chloride 103 mmol/L (98-107); Glucose 65 mg/dL (74-99); Lipase 19 U/L (23-300); Non-African American GFR(CKD) >90 (>60 ml/min/1.73 sqM); Potassium 3.9 mmol/L (3.5-5.1); Sodium 140 mmol/L (137-145); Total Bilirubin 0.5 mg/dL (0.2-1.3); Total Protein 7.1 g/dL (6.3-8.2)
[2023-10-06] MEDS: SODIUM CHLORIDE 0.9% 500 ML 500 ML IV STA (13:50)
[2023-10-06] MEDS: KETOROLAC 15 MG/ML 1 ML VIAL IVP STA (13:51)
[2023-10-06] MEDS: ONDANSETRON 4 MG/2 ML VIAL IVP STA (13:51)
[2023-10-06] MEDS: PANTOPRAZOLE 40 MG/10 ML VIAL IVP STA (13:51)
--- NOTE | 2023-10-06 14:50 | XR ---
EXAMINATION TYPE: XR KUB DATE OF EXAM: 10/06/2023 COMPARISON: NONE HISTORY: Pain TECHNIQUE: One view abdominal series FINDINGS: The osseous structures are intact. The bowel gas pattern is nonspecific. A few air-fluid levels are seen in the left abdomen. Spina bifida occulta lumbosacral junction. Curvature of the spine. Spina bi fida occulta of the coccyx. IMPRESSION: 1. Nonspecific abdomen correlate for an enteritis or ileus. Partial obstructive pattern not entirely excluded.
--- NOTE | 2023-10-06 17:12 | CT ---
EXAMINATION TYPE: CT abdomen pelvis w con DATE OF EXAM: 10/06/2023 COMPARISON: 05/14/2019 HISTORY: Abdominal pain n/v/d. CT DLP: 948.8 mGycm Automated exposure control for dose reduction was used. TECHNIQUE: Helical acquisition of images was performed from the lung bases through the pelvis. CONTRAST: Performed without Oral Contrast and with IV Contrast, patient injected with 100 ml mL of Isovue 300. FINDINGS: The lung bases are clear. The gallbladder is normal without distention, wall thickening, pericholecystic fluid or gallstones. T here is no biliary ductal dilatation. There is no focal mass or organomegaly involving the liver, pancreas, spleen or adrenal glands. There is no solid renal mass or hydronephrosis and there is homogeneous contrast enhancement of the r enal parenchyma. The caliber the abdominal aorta is normal is no retroperitoneal adenopathy or hemorr nancy. The bowel loops are normal in caliber and there is no evidence of dilatation or obstruction. No infla mmatory changes are identified in the bowel wall or mesentery. There is a small amount of free fluid within the cul-de-sac of the pelvis No pelvic mass, free fluid, abscess or adenopathy. The osseous structures and soft tissues are intact. IMPRESSION: Small amount of free fluid within the cul-de-sac with no other significant abnormality seen.
[2023-10-06] MEDS: ONDANSETRON 4 MG ODT STARTER PACK 2 TAB BTL PO STA (18:07)
[2023-10-06 18:34] VITALS: BP 135/90; PULSE 64
== END 2023-10-06 18:15 | disposition home or self-care (01) ==
LOC: EC 12:30
DX: R11.2 Nausea with vomiting, unspecified (principal); R10.13 Epigastric pain; R19.7 Diarrhea, unspecified; Z88.8 Allergy status to other drugs, medicaments and biological substances
CPT/HCPCS: 99284; 96374; 96375 ×2; 96361; 36415; 80053; 82150; 83690; 85025; 86308; 74018; 74177; J2405; J1885; S0119; C9113; Q9967

== ENCOUNTER 2024-01-06 22:50 | Emergency (ER) | payer OTHER ==
[2024-01-06 23:02] VITALS: RESP 18; TEMP 98.1
--- NOTE | 2024-01-06 23:24 | ED ---
ENT HPI - General Chief complaint: Dental/Oral Stated complaint: Tooth pain, loss of appetite Time Seen by Provider: 01/06/24 23:06 Source: patient Mode of arrival: ambulatory Limitations: no limitations - History of Present Illness Initial comments: 23-year-old male presenting with chief complaint of tooth pain. Patient has history of broken bottom right molar. He also states that his wisdom tooth recently came in. He is unable to get into the dentist until later on this month. He came in today for worsening pain and generally not feeling well. No drooling, difficulty breathing, fever. - Related Data Previous Rx's Medication Instructions Recorded Acetaminophen-Codeine 300-30mg 1 tab PO Q6H PRN 3 Days #12 tablet 01/06/24 [Tylenol w/codeine #3] Amoxic-Pot Clav 875-125Mg 1 tab PO Q12HR 7 Days #14 tab 01/06/24 [Augmentin 875-125] Allergies Allergy/AdvReac Type Severity Reaction Status Date / Time haloperidol [From Haldol] Allergy Severe Anaphylaxis Verified 01/06/24 23:02 Review of Systems ROS Statement: Those systems with pertinent positive or pertinent negative responses have been documented in the HPI. ROS Other: All systems not noted in ROS Statement are negative. Past Medical History Past Medical History: Asthma, GERD/Reflux Additional Past Medical History / Comment(s): Headaches SINCE A HEAD INJURY IN 2017, FEBRILE SEIZURE A , PAST HISTORY OF IRREGULAR HEARTBEAT- History of Any Multi-Drug Resistant Organisms: None Reported Past Surgical History: No Surgical Hx Reported Additional Past Surgical History / Comment(s): DENTAL WORK WITH ANESTHESIA Past Anesthesia/Blood Transfusion Reactions: No Reported Reaction Past Psychological History: ADD/ADHD, Depression Smoking Status: Never smoker Past Alcohol Use History: None Reported Past Drug Use History: None Reported - Past Family History Mother Family Medical History: No Reported History General Exam Limitations: no limitations General appearance: alert, in no apparent distress Head exam: Present: atraumatic, normocephalic, normal inspection Eye exam: Present: normal appearance, EOMI Expanded Mouth exam: Present: tongue normal. Absent: drooling, trismus, muffled voice Teeth exam: Present: fractured tooth #, dental tenderness # Throat exam: normal inspection Neck exam: Present: normal inspection. Absent: meningismus Respiratory exam: Absent: respiratory distress Cardiovascular Exam: Present: regular rate Neurological exam: Present: alert, oriented X3 Psychiatric exam: Present: normal affect, normal mood Skin exam: Present: warm, dry Course Vital Signs 01/06/24 01/06/24 23:01 23:44 Temperature 98.1 F Pulse Rate 71 57 L Respiratory 18 18 Rate Blood Pressure 145/94 130/83 O2 Sat by Pulse 100 98 Oximetry Medical Decision Making - Medical Decision Making Was pt. sent in by a medical professional or institution (, LOU, SAWMILL SUPERVISOR, urgent care, hospital, or [place] [facility] facility...) When possible be specific @ -No Did you speak to anyone other than the patient for history (EMS, parent, family, police, friend...)? What history was obtained from this source @ -No Did you review nursing and triage notes (agree or disagree)? Why? @ -I reviewed and agree with nursing and triage notes Were old charts reviewed (outside hosp., previous admission, EMS record, old EKG, old radiological studies, urgent care reports/EKG's, [place] health [facility] facility records)? Report findings @ -No old charts were reviewed Differential Diagnosis (chest pain, altered mental status, abdominal pain women, abdominal pain men, vaginal bleeding, weakness, fever, dyspnea, syncope, headache, dizziness, GI bleed, back pain, seizure, CVA, palpatations, mental health, musculoskeletal)? @ -Differential includes toothache, dental abscess, Devon's angina, this is not an all-inclusive list EKG interpreted by me (3pts min.). @ -As above X-rays interpreted by me (1pt min.). @ -None done CT interpreted by me (1pt min.). @ -None done U/S interpreted by me (1pt. min.). @ -None done What testing was considered but not performed or refused? (CT, X-rays, U/S, labs)? Why? @ -None What meds were considered but not given or refused? Why? @ -None Did you discuss the management of the patient with other professionals (professionals i.e. LOU Alfredo, SAWMILL SUPERVISOR, lab, RT, psych nurse, public health social worker, tattoo identifier, teacher, plant protection officer, correctional counselor/case manager)? Give summary @ -No Was smoking cessation discussed for >3mins.? @ -No Was critical care preformed (if so, how long)? @ -No Were there social determinants of health that impacted care today? How? (Homelessness, low income, unemployed, alcoholism, drug addiction, transportation, low edu. Level, literacy, decrease access to med. care, long term, rehab)? @ -No Was there de-escalation of care discussed even if they declined (Discuss DNR or withdrawal of care, Hospice)? DNR status @ -No What co-morbidities impacted this encounter? (DM, HTN, Smoking, COPD, CAD, Cancer, CVA, ARF, Chemo, Hep., AIDS, mental health diagnosis, sleep apnea, morbid obesity)? @ -None Was patient admitted / discharged? Hospital course, mention meds given and route, prescriptions, significant lab abnormalities, going to OR and other pertinent info. @ -23-year-old male presenting with chief complaint of toothache. Provided with pain medication and Augmentin for infection prophylaxis. He will follow-up with his dentist later on this month. Discharged home. Follow-up with PCP. Report back to ER with any new or worsening symptoms. Discussed return parameters and answered all questions. Patient conveyed verbal understanding and agreed to the plan. I discussed this case in detail with my attending Dr. Méndez Undiagnosed new problem with uncertain prognosis? @ -No Drug Therapy requiring intensive monitoring for toxicity (Heparin, Nitro, Insulin, Cardizem)? @ -No Were any procedures done? @ -No Diagnosis/symptom? @ -Toothache, fractured tooth Acute, or Chronic, or Acute on Chronic? @ -Acute Uncomplicated (without systemic symptoms) or Complicated (systemic symptoms)? @ -Uncomplicated Side effects of treatment? @ -No Exacerbation, Progression, or Severe Exacerbation? @ -No Poses a threat to life or bodily function? How? (Chest pain, USA, [place], pneumonia, PE, COPD, DKA, ARF, appy, cholecystitis, CVA, Diverticulitis, Homicidal, Suicidal, threat to staff... and all critical care pts) @ -No Disposition Clinical Impression: Fracture of tooth, Toothache Disposition: HOME SELF-CARE Condition: Good Instructions (If sedation given, give patient instructions): Toothache (ED) Additional Instructions: Follow-up with your dentist at your scheduled appointment. Report back to ER with any new or worsening symptoms. Alternate Motrin and Tylenol as needed for pain control. Take medication as prescribed. Prescriptions: Amoxic-Pot Clav 875-125Mg [Augmentin 875-125] 1 tab PO Q12HR 7 Days #14 tab Acetaminophen-Codeine 300-30mg [Tylenol w/codeine #3] 1 tab PO Q6H PRN 3 Days #12 tablet PRN Reason: Pain Is patient prescribed a controlled substance at d/c from ED?: Yes When asked, does pt state using other controlled substances?: No If prescribed controlled substance>3 days was MAPS reviewed?: Prescribed <3 Days If opioid is for acute pain is fill amount 7 days or less?: Yes Referrals: None,Stated [Primary Care Provider] - 1-2 days Time of Disposition: 23:24
[2024-01-06] MEDS: KETOROLAC 15 MG/ML 1 ML VIAL IM STA (23:38)
[2024-01-06] MEDS: ACET/COD 300 MG/30 MG STARTER PACK 6 TAB BTL PO STA (23:39)
[2024-01-06 23:53] VITALS: BP 130/83; PULSE 57
== END 2024-01-06 23:44 | disposition home or self-care (01) ==
LOC: EC 22:50
DX: K03.81 Cracked tooth (principal); Z88.8 Allergy status to other drugs, medicaments and biological substances
CPT/HCPCS: 99282; 96372; J1885

== ENCOUNTER 2024-07-29 21:04 | Emergency (ER) | payer OTHER ==
[2024-07-29 21:24] VITALS: TEMP 98.1
--- NOTE | 2024-07-29 21:54 | ED ---
Abdominal Pain HPI - General Source: patient, RN notes reviewed Mode of arrival: ambulatory Limitations: no limitations - History of Present Illness MD Complaint: abdominal pain <Jameson Jamil - Last Filed: 07/29/24 21:53> - General Source: patient, RN notes reviewed, old records reviewed Mode of arrival: ambulatory Limitations: no limitations - History of Present Illness MD Complaint: abdominal pain -: days(s) (2) Location: RLQ Radiation: RLQ Migration to: suprapubic Severity: severe Severity scale (1-10): 9 Consistency: constant Improves With: nothing Worsens With: nothing Associated Symptoms: nausea, vomiting, diarrhea Treatments Prior to Arrival: other <Nazario Merida - Last Filed: 07/30/24 00:41> - General Chief Complaint: Abdominal Pain Stated Complaint: NVD abd pain Time Seen by Provider: 07/29/24 21:17 - History of Present Illness Initial Comments: Quick note: This is a 23-year-old male complaining of right lower quadrant abdominal pain right seen 02/13) x 2 days. Describes abdominal pain as sharp/stabbing and constant, radiating to right lower back. Patient endorses associated fever, chills, nausea/vomiting, and diarrhea. Denies history of appendectomy. Denies chest pain, dyspnea, hematemesis, hematochezia, melena. (Jameson Jamil) This is a 23-year-old female to the ER for right lower quadrant abdominal pain severe right lower quadrant abdominal pain that has been sharp stabbing and consistent for 2 days pain goes to his back goes to his belly. Patient notes fevers nausea vomiting chills weakness with no prior surgical history and decreased appetite (Nazario Merida) - Related Data Previous Rx's Medication Instructions Recorded Acetaminophen-Codeine 300-30mg 1 tab PO Q6H PRN 3 Days #12 tablet 01/06/24 [Tylenol w/codeine #3] Amoxic-Pot Clav 875-125Mg 1 tab PO Q12HR 7 Days #14 tab 01/06/24 [Augmentin 875-125] Allergies Allergy/AdvReac Type Severity Reaction Status Date / Time haloperidol [From Haldol] Allergy Severe Anaphylaxis Verified 07/29/24 21:24 Review of Systems ROS Other: All systems not noted in ROS Statement are negative. <Jameson Jamil - Last Filed: 07/29/24 21:53> ROS Other: All systems not noted in ROS Statement are negative. <AbidaNazario agee - Last Filed: 07/30/24 00:41> ROS Statement: Those systems with pertinent positive or pertinent negative responses have been documented in the HPI. Past Medical History Past Medical History: Asthma, GERD/Reflux Additional Past Medical History / Comment(s): Headaches SINCE A HEAD INJURY IN 2017, FEBRILE SEIZURE A , PAST HISTORY OF IRREGULAR HEARTBEAT- History of Any Multi-Drug Resistant Organisms: None Reported Past Surgical History: No Surgical Hx Reported Additional Past Surgical History / Comment(s): DENTAL WORK WITH ANESTHESIA Past Anesthesia/Blood Transfusion Reactions: No Reported Reaction Past Psychological History: ADD/ADHD, Depression Smoking Status: Vaper Past Alcohol Use History: None Reported Past Drug Use History: None Reported - Past Family History Mother Family Medical History: No Reported History <Jameson Jamil - Last Filed: 07/29/24 21:53> General Exam Limitations: no limitations <Jameson Jamil - Last Filed: 07/29/24 21:53> General appearance: alert, in no apparent distress Head exam: Present: atraumatic, normocephalic, normal inspection Eye exam: Present: normal appearance, PERRL, EOMI. Absent: scleral icterus, conjunctival injection, periorbital swelling ENT exam: Present: normal exam, mucous membranes moist Neck exam: Present: normal inspection. Absent: tenderness, meningismus, lymphadenopathy Respiratory exam: Present: normal lung sounds bilaterally. Absent: respiratory distress, wheezes, rales, rhonchi, stridor Cardiovascular Exam: Present: regular rate, normal rhythm, normal heart sounds. Absent: systolic murmur, diastolic murmur, rubs, gallop, clicks GI/Abdominal exam: Present: soft, normal bowel sounds. Absent: distended, tenderness, guarding, rebound, rigid Extremities exam: Present: normal inspection, full ROM, normal capillary refill. Absent: tenderness, pedal edema, joint swelling, calf tenderness Back exam: Present: normal inspection Neurological exam: Present: alert, oriented X3, CN II-XII intact Psychiatric exam: Present: normal affect, normal mood Skin exam: Present: warm, dry, intact, normal color. Absent: rash <Nazario Merida - Last Filed: 07/30/24 00:41> - General Exam Comments Initial Comments: Visual Physical Exam Vital signs reviewed General: Well-appearing, nontoxic. Patient appears slightly distressed, clutching RLQ Head: Normocephalic, atraumatic Eyes: PERRLA, EOMI ENT: Airway patent Chest: Nonlabored breathing Skin: No visual rash, normal skin tone Neuro: Alert and oriented 3 Musculoskeletal: No gross abnormalities (Jameson Jamil) Course <Nazario Merida - Last Filed: 07/30/24 00:41> Vital Signs 07/29/24 21:21 Temperature 98.1 F Pulse Rate 95 Respiratory 19 Rate Blood Pressure 137/84 O2 Sat by Pulse 99 Oximetry - Reevaluation(s) Reevaluation #1: 07/29/24 23:43 Medical records reviewed No contributing medical record (Nazario Merida) Reevaluation #2: 07/29/24 23:43 Patient symptoms are improved Patient continues to have resolved symptoms Patient feels good with discharge home (Nazario Merida) Reevaluation #3: 07/30/24 00:41 Patient informed of results and questions answered (Nazario Merida) Reevaluation #4: Was pt. sent in by a medical professional or institution (, PA, SCRUBBER MACHINE TENDER, urgent care, hospital, or shelter...) When possible be specific @ -no Did you speak to anyone other than the patient for history (EMS, parent, family, police, friend...)? What history was obtained from this source @ -no Did you review nursing and triage notes (agree or disagree)? Why? @ -agree Are old charts reviewed (outside hosp., previous admission, EMS record, old EKG, old radiological studies, urgent care reports/EKG's, shelter records)? Report findings @ -yes Differential Diagnosis (chest pain, altered mental status, abdominal pain women, abdominal pain men, vaginal bleeding, weakness, fever, dyspnea, syncope, headache, dizziness, GI bleed, back pain, seizure, CVA, palpatations, mental health, musculoskeletal)? @ -prior EKG interpreted by me (3pts min.). @ -yes X-rays interpreted by me (1pt min.). @ -yes negative for acute disease CT interpreted by me (1pt min.). @ -no U/S interpreted by me (1pt. min.). @ -no What testing was considered but not performed or refused? (CT, X-rays, U/S, labs)? Why? @ -none What meds were considered but not given or refused? Why? @ -none Did you discuss the management of the patient with other professionals (professionals i.e. , PA, SCRUBBER MACHINE TENDER, lab, RT, psych nurse, high school social studies tutor, associate vice president, teacher, hospital admissions officer, classification case manager)? Give summary @ -no Was smoking cessation discussed for >3mins.? @ -no Was critical care preformed (if so, how long)? @ -no Were there social determinants of health that impacted care today? How? (Homelessness, low income, unemployed, alcoholism, drug addiction, transportation, low edu. Level, literacy, decrease access to med. care, fpc, rehab)? @ -none Was there de-escalation of care discussed even if they declined (Discuss DNR or withdrawal of care, Hospice)? DNR status @ -no What co-morbidities impacted this encounter? (DM, HTN, Smoking, COPD, CAD, Cancer, CVA, ARF, Chemo, Hep., AIDS, mental health diagnosis, sleep apnea, morbid obesity)? @ -none Was patient admitted / discharged? Hospital course, mention meds given and route, prescriptions, significant lab abnormalities, going to OR and other pertinent info. @ - Undiagnosed new problem with uncertain prognosis? @ -no Drug Therapy requiring intensive monitoring for toxicity (Heparin, Nitro, Insulin, Cardizem)? @ -no Were any procedures done? @ -no Diagnosis/symptom? @ - Acute, or Chronic, or Acute on Chronic? @ -Acute Uncomplicated (without systemic symptoms) or Complicated (systemic symptoms)? @ -Complicated Side effects of treatment? @ -no Exacerbation, Progression, or Severe Exacerbation? @ -exacerbation Poses a threat to life or bodily function? How? (Chest pain, [place], [place], pneumonia, PE, COPD, DKA, ARF, appy, cholecystitis, CVA, Diverticulitis, Homicidal, Mai icidal, threat to staff... and all critical care pts) @ -yes (Nazario Merida) Reevaluation #5: Differential Abdominal Pain Men: Appendicitis, cholecystitis, diverticulosis, ischemic bowel, pancreatitis, hepatitis, UTI, gastroenteritis, AAA, incarcerated hernia, bowel obstruction, constipation, inflammatory bowel, hepatitis, peptic ulcer disease, splenic infarction, perforated viscus, testicular torsion, this is not meant to be an all-inclusive list (Nazario Merida) Medical Decision Making <Jameson Jamil - Last Filed: 07/29/24 21:53> - Lab Data Result diagrams: 07/29/24 22:44 07/29/24 22:44 - Radiology Data Radiology results: report reviewed (CT abdomen pelvis is negative for acute disease), image reviewed <Nazario Merida - Last Filed: 07/30/24 00:41> - Medical Decision Making I completed the quick note portion of this chart signed CARSON Parker (Jameson Jamil) 23 male to the ER for evaluation of abdominal pain right lower quad abdominal pain with fever. Patient was negative for Cepheid testing, elevated white count positive for fever, CT pelvis is negative for acute disease patient can be discharged home (Nazario Merida) - Lab Data Lab Results 07/29/24 07/29/24 07/29/24 Range/Units 21:25 22:44 22:44 WBC 8.1 (3.8-10.6) k/uL RBC 4.97 (4.30-5.90) m/uL Hgb 15.2 (13.0-17.5) gm/dL Hct 44.3 (39.0-53.0) % MCV 89.0 (80.0-100.0) fL MCH 30.6 (25.0-35.0) pg MCHC 34.3 (31.0-37.0) g/dL RDW 12.7 (11.5-15.5) % Plt Count 186 (150-450) k/uL MPV 8.4 Neutrophils % 90 % Lymphocytes % 4 % Monocytes % 4 % Eosinophils % 1 % Basophils % 0 % Neutrophils # 7.3 (1.3-7.7) k/uL Lymphocytes # 0.4 L (1.0-4.8) k/uL Monocytes # 0.3 (0-1.0) k/uL Eosinophils # 0.1 (0-0.7) k/uL Basophils # 0.0 (0-0.2) k/uL Sodium 135 L (137-145) mmol/L Potassium 4.2 (3.5-5.1) mmol/L Chloride 98 (98-107) mmol/L Carbon Dioxide 24 (22-30) mmol/L Anion Gap 13 mmol/L BUN 22 H (9-20) mg/dL Creatinine 0.90 (0.66-1.25) mg/dL Est GFR (CKD-EPI)AfAm >90 (>60 ml/min/1.73 sqM) Est GFR (CKD-EPI)NonAf >90 (>60 ml/min/1.73 sqM) Glucose 108 H (74-99) mg/dL Plasma Lactic Acid Duke (0.7-2.0) mmol/L Calcium 9.3 (8.4-10.2) mg/dL Total Bilirubin 1.3 (0.2-1.3) mg/dL AST 24 (17-59) U/L ALT 27 (4-49) U/L Alkaline Phosphatase 65 (38-126) U/L Total Protein 7.4 (6.3-8.2) g/dL Albumin 4.4 (3.5-5.0) g/dL Lipase 37 (23-300) U/L Influenza Type A (PCR) Not Detected (Not Detectd) Influenza Type B (PCR) Not Detected (Not Detectd) RSV (PCR) Not Detected (Not Detectd) SARS-CoV-2 (PCR) Not Detected (Not Detectd) 07/29/24 Range/Units 22:44 WBC (3.8-10.6) k/uL RBC (4.30-5.90) m/uL Hgb (13.0-17.5) gm/dL Hct (39.0-53.0) % MCV (80.0-100.0) fL MCH (25.0-35.0) pg MCHC (31.0-37.0) g/dL RDW (11.5-15.5) % Plt Count (150-450) k/uL MPV Neutrophils % % Lymphocytes % % Monocytes % % Eosinophils % % Basophils % % Neutrophils # (1.3-7.7) k/uL Lymphocytes # (1.0-4.8) k/uL Monocytes # (0-1.0) k/uL Eosinophils # (0-0.7) k/uL Basophils # (0-0.2) k/uL Sodium (137-145) mmol/L Potassium (3.5-5.1) mmol/L Chloride (98-107) mmol/L Carbon Dioxide (22-30) mmol/L Anion Gap mmol/L BUN (9-20) mg/dL Creatinine (0.66-1.25) mg/dL Est GFR (CKD-EPI)AfAm (>60 ml/min/1.73 sqM) Est GFR (CKD-EPI)NonAf (>60 ml/min/1.73 sqM) Glucose (74-99) mg/dL Plasma Lactic Acid Duke 1.1 (0.7-2.0) mmol/L Calcium (8.4-10.2) mg/dL Total Bilirubin (0.2-1.3) mg/dL AST (17-59) U/L ALT (4-49) U/L Alkaline Phosphatase (38-126) U/L Total Protein (6.3-8.2) g/dL Albumin (3.5-5.0) g/dL Lipase (23-300) U/L Influenza Type A (PCR) (Not Detectd) Influenza Type B (PCR) (Not Detectd) RSV (PCR) (Not Detectd) SARS-CoV-2 (PCR) (Not Detectd) Disposition <Jameson Jamil - Last Filed: 07/29/24 21:53> Is patient prescribed a controlled substance at d/c from ED?: No Time of Disposition: 00:30 <Nazario Merida - Last Filed: 07/30/24 00:41> Clinical Impression: Colitis, Abdominal pain, Fever Disposition: HOME SELF-CARE Condition: Good Instructions (If sedation given, give patient instructions): Abdominal Pain (ED), Fever in Adults (ED) Referrals: None,Stated [Primary Care Provider] - 1-2 days
[2024-07-29 22:22] LABS: Influenza A Not Detected (Not Detectd); Influenza B Not Detected (Not Detectd); RSV Not Detected (Not Detectd)
[2024-07-29] MEDS: ONDANSETRON 4 MG/2 ML VIAL IVP STA (22:43)
[2024-07-29] MEDS: KETOROLAC 15 MG/ML 1 ML VIAL IVP STA (22:43)
[2024-07-29] MEDS: SODIUM CHLORIDE 0.9% 1,000 ML IV STA (22:43)
[2024-07-29] MEDS: ACETAMINOPHEN IV (For NPO) 1,000 MG in EMPTY BAG 1 BAG IVPB STA (22:52)
[2024-07-29 22:57] LABS: Basophils % (A) 0 %; Eosinophils # (A) 0.1 k/uL (0-0.7); Eosinophils % (A) 1 %; HCT 44.3 % (39.0-53.0); HGB 15.2 gm/dL (13.0-17.5); Lymphocytes # (A) 0.4 k/uL (1.0-4.8); Lymphocytes % (A) 4 %; MCH 30.6 pg (25.0-35.0); MCHC 34.3 g/dL (31.0-37.0); Mean Platelet Volume 8.4; Monocytes # (A) 0.3 k/uL (0-1.0); Monocytes % (A) 4 %; Neutrophils # (A) 7.3 k/uL (1.3-7.7); Neutrophils % (A) 90 %; Platelet Count 186 k/uL (150-450); RBC 4.97 m/uL (4.30-5.90); RDW 12.7 % (11.5-15.5); WBC 8.1 k/uL (3.8-10.6)
[2024-07-29 23:17] LABS: ALT 27 U/L (4-49); AST 24 U/L (17-59); African American GFR (CKD) >90 (>60 ml/min/1.73 sqM); Albumin 4.4 g/dL (3.5-5.0); Alkaline Phosphatase 65 U/L (38-126); Anion Gap 13 mmol/L; Blood Urea Nitrogen 22 mg/dL (9-20); Calcium 9.3 mg/dL (8.4-10.2); Carbon Dioxide 24 mmol/L (22-30); Chloride 98 mmol/L (98-107); Glucose 108 mg/dL (74-99); Lipase 37 U/L (23-300); Non-African American GFR(CKD) >90 (>60 ml/min/1.73 sqM); Potassium 4.2 mmol/L (3.5-5.1); Sodium 135 mmol/L (137-145); Total Bilirubin 1.3 mg/dL (0.2-1.3); Total Protein 7.4 g/dL (6.3-8.2)
--- NOTE | 2024-07-30 00:37 | CT ---
EXAM: CT Abdomen and Pelvis With Intravenous Contrast CLINICAL HISTORY: ITS.REASON CT Reason: RLQ pain TECHNIQUE: Axial computed tomography images of the abdomen and pelvis with intravenous contrast. CTDI is 14 mGy and DLP is 601.7 mGy-cm. This CT exam was performed using one or more of the following dose reduction techniques: automated exposure control, adjustment of the mA and/or kV according to patient size, and/or use of iterative reconstruction technique. COMPARISON: No relevant prior studies available. FINDINGS: Lung bases: Unremarkable. No mass. No consolidation. ABDOMEN: Liver: Unremarkable. No mass. Gallbladder and bile ducts: Unremarkable. No calcified stones. No ductal dilation. Pancreas: Unremarkable. No mass. No ductal dilation. Spleen: Unremarkable. No splenomegaly. Adrenals: Unremarkable. No mass. Kidneys and ureters: Unremarkable. No solid mass. No hydronephrosis. Stomach and bowel: Unremarkable. No obstruction. No mucosal thickening. PELVIS: Appendix: No findings to suggest acute appendicitis. Bladder: Unremarkable. No mass. Reproductive: Unremarkable as visualized. ABDOMEN and PELVIS: Intraperitoneal space: Unremarkable. No free air. No significant fluid collection. Bones/joints: No acute fracture. No dislocation. Soft tissues: Unremarkable. Vasculature: Unremarkable. No abdominal aortic aneurysm. Lymph nodes: Unremarkable. No enlarged lymph nodes. IMPRESSION: Normal abdomen and pelvis CT.
[2024-07-30] MEDS: SODIUM CHLORIDE 0.9% 1,000 ML IV ONE (00:47)
[2024-07-30 00:56] VITALS: BP 127/68; PULSE 71; RESP 16
== END 2024-07-30 01:24 | disposition home or self-care (01) ==
LOC: EC 21:04
DX: K52.9 Noninfective gastroenteritis and colitis, unspecified (principal); F17.290 Nicotine dependence, other tobacco product, uncomplicated; Z88.8 Allergy status to other drugs, medicaments and biological substances
CPT/HCPCS: 36415; 80053; 83605; 83690; 85025; 87636; 74177; 99284; 96365; 96372 ×2; 96361; J2405; J0131; J1885; Q9967